=== PATIENT | male | born 1985 | race Hispanic/Latino ===

== ENCOUNTER 2018-11-02 20:16 | Emergency (ER) | payer BC ==
[2018-11-02 20:50] VITALS: BMI 29.8
[2018-11-02] MEDS ORDERED: Lidocaine 5% Patch TD STA (21:56)
[2018-11-02] MEDS ORDERED: Tmp-Smz 800 mg-160 mg DS Tab PO STA (21:57)
[2018-11-02] MEDS ORDERED: Morphine 4 mg/ml ISec IVP STA (21:58)
[2018-11-02] MEDS ORDERED: TDAP Vaccine 0.5 mL Syr IM ONE (21:58)
[2018-11-02] MEDS ORDERED: Morphine 4 mg/ml ISec IM STA (21:58)
--- NOTE | 2018-11-02 22:12 | ED PDOC ---
Arrival/HPI - General Chief Complaint: Abnormal Skin Integrity Time Seen by Provider: 11/02/18 20:19 Historian: Patient - History of Present Illness Narrative History of Present Illness (Text): 11/02/18 22:09 33 year old male, who is allergic to amoxicillin, presents to the emergency department with an abscess, for 2 days. Patient informs abscess is located to the left mid back. Patient informs it is painful, red, and swollen. Patient denies any fever, chills, chest pain, shortness of breath, or any other complaints. Patient informs tetanus is not up to date. Time/Duration: < week (2 days) Symptom Onset: Gradual Symptom Course: Unchanged Activities at Onset: Light Context: Home Past Medical History - Provider Review Nursing Documentation Reviewed: Yes - Infectious Disease Hx of Infectious Diseases: None - Tetanus Immunization Tetanus Immunization: Unknown - Past Medical History Past Medical History: No Previous - Cardiac Hx Cardiac Disorders: No - Pulmonary Hx Respiratory Disorders: No - Neurological Hx Neurological Disorder: No - HEENT Hx HEENT Disorder: No - Renal Hx Renal Disorder: No - Endocrine/Metabolic Hx Endocrine Disorders: No - Hematological/Oncological Hx Blood Disorders: No - Integumentary Hx Dermatological Disorder: No - Musculoskeletal/Rheumatological Hx Musculoskeletal Disorders: No - Gastrointestinal Hx Gastrointestinal Disorders: No - Genitourinary/Gynecological Hx Genitourinary Disorders: No - Psychiatric Hx Psychophysiologic Disorder: No Hx Substance Use: No - Past Surgical History Past Surgical History: No Previous - Surgical History Hx Appendectomy: Yes - Anesthesia Hx Anesthesia Reactions: No Hx Malignant Hyperthermia: No - Suicidal Assessment Feels Threatened In Home Enviroment: No Family/Social History - Physician Review Nursing Documentation Reviewed: Yes Family/Social History: No Known Family HX Smoking Status: Heavy Smoker > 10 Cigarettes Daily Hx Alcohol Use: Yes Frequency of alcohol use: Socially Hx Substance Use: No Allergies/Home Meds Allergies/Adverse Reactions: Allergies amoxicillin Allergy (Verified 11/02/18 20:51) RASH Review of Systems - Physician Review All systems were reviewed & negative as marked: Yes - Review of Systems Constitutional: absent: Fatigue, Fevers, Night Sweats Respiratory: absent: SOB, Cough Cardiovascular: absent: Chest Pain, Palpitations Skin: Abscess. absent: Rash, Skin Lesions Neurological: absent: Headache, Dizziness Physical Exam Vital Signs Reviewed: Yes Vital Signs Temp Pulse Resp BP Pulse Ox 11/02/18 20:51 99.1 F 85 18 110/69 99 Temperature: Afebrile Blood Pressure: Normal Pulse: Regular Respiratory Rate: Normal Appearance: Positive for: Well-Appearing, Non-Toxic, Comfortable Pain Distress: None Mental Status: Positive for: Alert and Oriented X 3 - Systems Exam Head: Present: Atraumatic, Normocephalic Pupils: Present: PERRL Extroacular Muscles: Present: EOMI Conjunctiva: Present: Normal Mouth: Present: Moist Mucous Membranes Neck: Present: Normal Range of Motion Respiratory/Chest: Present: Clear to Auscultation, Good Air Exchange. No: Respiratory Distress, Accessory Muscle Use Cardiovascular: Present: Regular Rate and Rhythm, Normal S1, S2. No: Murmurs Back: Present: Normal Inspection Upper Extremity: Present: Normal Inspection. No: Cyanosis, Edema Lower Extremity: Present: Normal Inspection. No: Edema Neurological: Present: GCS=15, CN II-XII Intact, Speech Normal Skin: Present: Warm, Dry, Normal Color, Abscess (3x4 cm tender, erythematous, indurated, nonfluctuant abscess to the L mid back.). No: Rashes Psychiatric: Present: Alert, Oriented x 3, Normal Insight, Normal Concentration Medical Decision Making ED Course and Treatment: 11/02/18 22:15 Impression: 33 year old male presents with abscess. Plan: -- Keflex -- Lidoderm -- Morphine -- Zofran -- Bactrim -- TDAP -- Reassess and disposition Prior Visits: Notes and results from previous visits were reviewed. Progress Notes: Patient was advised to use warm compresses on the area and take antibiotics for discussed diagnosis and abscess discomfort. Advised to follow up with referral physician in 1-2 days without fail. Advised to take medication as prescribed. Return to the emergency room at any time for any new or worsening symptoms. Patient states she fully agrees with and understands discharge instructions. States that she agrees with the plan and disposition. Verbalized and repeated discharge instructions and plan. I have given the patient opportunity to ask any additional questions. - Medication Orders Current Medication Orders: Discontinued Medications Cephalexin Monohydrate (Keflex) 500 mg PO STAT STA; Protocol Stop: 11/02/18 21:58 Lidocaine (Lidoderm) 1 ea TD STAT STA Stop: 11/02/18 21:57 Last Admin: 11/02/18 22:05 Dose: 1 ea MAR Transdermal Patch Site Document 11/02/18 22:05 LA (Rec: 11/02/18 22:06 LA [id number]) Transdermal Patch Site Transdermal Patch Site Right Shoulder Morphine Sulfate (Morphine) 4 mg IVP STAT STA Stop: 11/02/18 21:59 Morphine Sulfate (Morphine) 4 mg IM STAT STA Stop: 11/02/18 21:59 Last Admin: 11/02/18 22:06 Dose: 4 mg MAR Pain Assessment Document 11/02/18 22:06 LA (Rec: 11/02/18 22:07 LA [id number]) Pain Reassessment Is this a pain reassessment? No Sleep Is patient sleeping during reassessment? No Presence of Pain Presence of Pain Yes Pain Scale Used Protocol: PSCALES Pain Scale Used Numeric Location Left, Right or Bilateral Left Upper or Lower Upper Pain Location Body Site Back Description Description Constant Intensity of Pain at present 10 IM Administration Charges Document 11/02/18 22:06 LEA (Rec: 11/02/18 22:07 LA [id number]) Charges for Administration # of IM Administrations 1 Ondansetron HCl (Zofran Odt) 4 mg PO STAT STA Stop: 11/02/18 21:59 Tetanus/Reduced Diphtheria/Acell Pertussis (Boostrix Vaccine Inj) 0.5 ml IM .ONCE ONE Stop: 11/02/18 21:59 Last Admin: 11/02/18 22:07 Dose: 0.5 ml Immunization Registry Document 11/02/18 22:07 LA (Rec: 11/02/18 22:07 LA [id number]) [facility]-Date provided 11/02/18 [facility] Immunization Data Document 11/02/18 22:07 LEA (Rec: 11/02/18 22:07 LA [id number]) Immunization Data Vaccine Information Sheet Given Yes Trimethoprim/Sulfamethoxazole (Bactrim Ds Tab) 2 tab PO STAT STA; Protocol Stop: 11/02/18 21:58 Last Admin: 11/02/18 22:06 Dose: 2 tab - PA / IRRIGATION MANAGER / Resident Statement MD/DO has reviewed & agrees with the documentation as recorded. - Scribe Statement The provider has reviewed the documentation as recorded by the Scribe Michael Terrazas Provider Scribe Attestation: All medical record entries made by the Scribe were at my direction and personally dictated by me. I have reviewed the chart and agree that the record accurately reflects my personal performance of the history, physical exam, medical decision making, and the department course for this patient. I have also personally directed, reviewed, and agree with the discharge instructions and disposition. Disposition/Present on Arrival - Present on Arrival Any Indicators Present on Arrival: No History of DVT/PE: No History of Uncontrolled Diabetes: No Urinary Catheter: No History of Decub. Ulcer: No History Surgical Site Infection Following: None - Disposition Have Diagnosis and Disposition been Completed?: Yes Diagnosis: Abscess Disposition: HOME/ ROUTINE Disposition Time: 22:00 Patient Plan: Discharge Condition: STABLE Discharge Instructions (ExitCare): Skin Abscess Additional Instructions: Thank you for letting us take care of you today. You were treated for abscess. The emergency medical care you received today was directed at your acute symptoms. If you were prescribed any medication, please fill it and take as directed. It may take several days for your symptoms to resolve. Return to the Emergency Department if your symptoms worsen, do not improve, or if you have any other problems. Please contact one of the physicians/clinics you have been referred to that are listed on the Patient Visit Information form that is included in your discharge packet. Bring any paperwork you were given at discharge with you along with any medications you are taking to your follow up visit. Our treatment cannot replace ongoing medical care by a primary care provider (PCP) outside of the emergency department. Thank you for allowing the [facility] team to be part of your care today. Prescriptions: Cephalexin [Keflex] 500 mg PO Q6 #28 capsule Lidocaine 5% [Lidoderm] 1 ea TD Q12H PRN #20 patch PRN Reason: Pain, Moderate (4-7) Meloxicam [Mobic] 15 mg PO DAILY PRN #20 tab PRN Reason: Pain, Mild (1-3) oxyCODONE/Acetaminophen [Percocet 5/325 mg Tab] 1 ea PO TID PRN #12 tab PRN Reason: Pain, Moderate (4-7) Sulfamethoxazole/Trimethoprim [Bactrim DS 800 mg-160 mg] 2 tab PO BID #28 tab Referrals: PCP,NO [Primary Care Provider] - Follow up with primary Augusto Barros MD [Medical Doctor] - Follow up with primary Forms: [employer] ([place]), WORK NOTE
[2018-11-02 22:22] VITALS: BP 110/65; PULSE 83; RESP 17; TEMP 99; O2SAT 100
== END 2018-11-02 22:40 | disposition home or self-care (01) ==
LOC: ED 20:16
DX: L02.212 Cutaneous abscess of back [any part, except buttock and flank] (principal); Z23 Encounter for immunization
CPT/HCPCS: 90471; 90715; 96372; 99283; J2270